=== PATIENT | male | born 1945 | race Two or more races ===

== ENCOUNTER 2023-04-28 16:38 | Emergency (ER) | payer MEDICARE, MEDICAID ==
[~2023-04-28] VITALS: Ht 172.7 cm; Wt 100.0 kg
[2023-04-28] MEDS ORDERED: KETOROLAC TROMETH 60MG/2ML VIAL IM ONE (17:00)
[2023-04-28] MEDS ORDERED: TRAM50TA2 PO (17:12)
[2023-04-28 17:52] VITALS: BP 169/76; PULSE 57; RESP 17; TEMP 98.4; O2SAT 95
== END 2023-04-28 17:54 | disposition home or self-care (01) ==
LOC: ER 16:38
DX: S39.012A Strain of muscle, fascia and tendon of lower back, initial encounter (principal); I10 Essential (primary) hypertension; X50.0XXA Overexertion from strenuous movement or load, initial encounter; Y93.89 Activity, other specified; Y92.89 Other specified places as the place of occurrence of the external cause; Y99.8 Other external cause status
CPT/HCPCS: 72131; 96372; 99285; J1885